=== PATIENT | female | born 1980 | race Asian ===

== ENCOUNTER 2019-12-01 07:12 | Emergency (ER) | payer OTHER ==
[~2019-12-01] VITALS: Ht 154.9 cm; Wt 63.5 kg
[2019-12-01 07:20] VITALS: TEMP 99.2
[2019-12-01 08:20] VITALS: BP 148/103
== END 2019-12-01 08:21 | disposition home or self-care (01) ==
LOC: ED 07:12
DX: R04.0 Epistaxis (principal)
CPT/HCPCS: 99283